=== PATIENT | male | born 1990 | race African-American/Black ===

== ENCOUNTER 2024-09-05 05:56 | Emergency (ER) | payer OTHER, SELFPAY ==
[2024-09-05] MEDS ORDERED: FAMOTIDINE 20 MG/2 ML VIAL IV ONE (06:42)
[2024-09-05] MEDS ORDERED: ONDANSETRON 4 MG/2 ML VIAL ONE (06:42)
[2024-09-05] MEDS ORDERED: HALOPERIDOL LACT 5 MG/ML INJ ONE (06:42)
[2024-09-05] MEDS ORDERED: NA CHLORIDE 0.9% 1,000 ML ONE (06:42)
[2024-09-05 06:54] LABS: Absolute Lymphocytes (CBC) 0.3 K/uL (0.7-4.9); Absolute Monocytes 0.5 K/uL (0.1-1.3); Absolute Neutrophil 8.4 K/uL (1.8-8.0); Basophils % 0.2 % (0-1.3); Hematocrit 44.6 % (39.6-49.0); Hemoglobin 15.5 g/dL (13.6-17.9); Lymphocytes % 3.6 % (15.3-44.8); MCHC 34.7 g/dL (32.0-36.0); MCV 92.3 fL (80-100); Monocytes % 5.4 % (3.3-12.3); Neutrophils % 90.8 % (41.7-73.7); Platelets 268 thou/uL (152-406); RBC Red Blood Cell Count 4.84 M/uL (4.33-5.43); Red Cell Distribution Width 12.6 % (12.1-15.2)
[2024-09-05 07:13] LABS: Albumin 4.4 g/dL (3.4-5.0); Albumin/Globulin Ratio 1.3 (1.1-1.8); Anion Gap 10.6 mEq/L (5.0-15.0); Bilirubin Total 1.5 mg/dL (0.2-1.0); Globulin 3.5 g/dL (2.3-3.5); Potassium 3.6 mEq/L (3.5-5.1); Protein, Total 7.9 g/dL (6.4-8.2)
--- NOTE | 2024-09-05 07:42 | ER ---
Nurse's Notes [facility] Name: Jonatan Valdez Age: 34 yrs Sex: Male : 1990 Arrival Date: 09/05/2024 Time: 05:56 Bed 20 Private MD: Diagnosis: Vomiting, unspecified;Diarrhea, unspecified Presentation: 09/05 06:17 Chief complaint: EMS states: c/o N/V for several days. Coronavirus screen: Client vc1 denies travel out of the [place] in the last 14 days. vomiting. Client presents with at least one sign or symptom that may indicate coronavirus-19. Ebola Screen: Patient negative for fever greater than or equal to 101.5 degrees Fahrenheit, and additional compatible Ebola Virus Disease symptoms Patient denies exposure to infectious person. Patient denies travel to an Ebola-affected area in the 21 days before illness onset. No symptoms or risks identified at this time. Risk Assessment: Do you want to hurt yourself or someone else? Patient reports no desire to harm self or others. Onset of symptoms is unknown. Care prior to arrival: None. Activity prior to arrival: None. 06:17 Method Of Arrival: EMS: [facility] vc1 06:17 Acuity: CHRISSY 3 vc1 06:45 Initial Sepsis Screen: Does the patient meet any 2 criteria? No. Patient's initial vc1 sepsis screen is negative. Does the patient have a suspected source of infection? No. Patient's initial sepsis screen is negative. Triage Assessment: 06:43 General: Appears in no apparent distress. uncomfortable, Behavior is calm, cooperative, vc1 appropriate for age. Pain: Complains of pain in umbilical area, right upper quadrant, left upper quadrant, right lower quadrant and left lower quadrant Pain does not radiate. Pain currently is 5 out of 10 on a pain scale. Also complains of nausea. EENT: No deficits noted. No signs and/or symptoms were reported regarding the EENT system. Neuro: Level of Consciousness is awake, alert, obeys commands, Oriented to person, place, time, situation, Appropriate for age. Cardiovascular: Capillary refill < 3 seconds Patient's skin is warm and dry. Respiratory: Airway is patent Respiratory effort is even, unlabored, Respiratory pattern is regular, symmetrical. GI: Reports epigastric pain, nausea, vomiting. Historical: - Allergies: 06:42 No Known Allergies; vc1 - Home Meds: 06:42 None [Active]; vc1 - PMHx: 06:42 None; vc1 - PSHx: 06:42 None; vc1 - Immunization history:: Client reports having NOT received the Covid vaccine. - Infectious Disease History:: Denies. - Social history:: Smoking status: unknown. Screenin:44 [place] [facility] Fall Risk Assessment (Adult) History of falling in the last 3 months, vc1 including since admission No falls in past 3 months (0 pts) Confusion or Disorientation No (0 pts) Intoxicated or Sedated No (0 pts) Impaired Gait No (0 pts) Mobility Assist Device Used No (0 pt) Altered Elimination No (0 pt) Score/Fall Risk Level 0 - 2 = Low Risk Oriented to surroundings, Maintained a safe environment, Educated pt \\T\\ family on fall prevention, incl call for assistance when getting out of bed. Abuse screen: Denies threats or abuse. Nutritional screening: No deficits noted. Tuberculosis screening: No symptoms or risk factors identified. Assessment: 06:55 General: Appears uncomfortable, Behavior is calm, cooperative, quiet, Reports feeling ss ill for "since after midnight.". Denies fever. Pain: Complains of pain in abdomen Pain currently is 5 out of 10 on a pain scale. Quality of pain is described as aching. Neuro: Level of Consciousness is awake, alert, obeys commands, Oriented to person, place, time, situation, Speech is normal. Respiratory: Airway is patent Respiratory effort is even, unlabored, Respiratory pattern is regular, symmetrical. GI: Reports lower abdominal pain, upper abdominal pain, diarrhea, nausea, vomiting, since "just after midnight". : No signs and/or symptoms were reported regarding the genitourinary system. Derm: Skin is pink, warm \\T\\ dry. normal. 07:33 Reassessment: Patient appears in no apparent distress at this time. No changes from kc6 previously documented assessment. Patient and/or family updated on plan of care and expected duration. Pain level reassessed. Patient is alert, oriented x 3, equal unlabored respirations, skin warm/dry/pink. Vital Signs: 06:44 BP 149 / 98; Pulse 97; Resp 16; Temp 98.4; Pulse Ox 100% ; Weight 79.38 kg; Height 5 vc1 ft. 11 in. ; Pain 5/10; 06:56 BP 112 / 77; ss 06:44 Body Mass Index 24.41 (79.38 kg, 180.34 cm) vc1 06:44 Pain Scale: Adult vc1 ED Course: 06:00 Patient arrived in ED. gm2 06:00 Arleen Douglas MD is Attending Physician. sw6 06:18 Triage completed. vc1 06:42 Inserted saline lock: 20 gauge in right antecubital area, using aseptic technique. vc1 Blood collected. Flushed with 10 mL NS. 06:42 CBC with Diff Sent. vc1 06:42 CMP Sent. vc1 06:42 Lipase Sent. vc1 06:43 Arm band placed on right wrist. vc1 06:55 Patient has correct armband on for positive identification. Bed in low position. Call ss light in reach. Side rails up X 1. hall monitor on. Pulse ox on. NIBP on. Warm blanket given. 06:57 CBC with Diff Sent. vk 06:57 CMP Sent. vk 06:57 Lipase Sent. vk 07:07 Tanisha Black, RN is Primary Nurse. kc6 07:07 Report received from ENRIKE Villegas. kc6 07:13 Attending Physician role handed off by Arleen Douglas MD rn 07:13 Shiva Herrera MD is Attending Physician. rn 07:38 US Abdomen Limited In Process Unspecified. EDMS 08:09 No provider procedures requiring assistance completed. IV discontinued, intact, kc6 bleeding controlled, No redness/swelling at site. Pressure dressing applied. Administered Medications: 06:50 Drug: NS 0.9% IV 1000 ml IV at 1 bolus Per protocol; to be given as a bolus over 60 ss minutes Route: IV; Rate: 1 bolus; Site: right antecubital; 06:51 Drug: Ondansetron IVP 4 mg IVP once; over 2 minutes Route: IVP; Site: right antecubital;ss 07:33 Follow up: Response: No adverse reaction kc6 06:52 Drug: Famotidine IVP 20 mg IVP once; dilute with 10 mL 0.9% NaCl; give over 2 minutes ss Route: IVP; Site: right antecubital; 07:33 Follow up: Response: No adverse reaction kc6 06:54 Drug: Haloperidol IVP 2.5 mg/50 mL 2.5 mg IVP once; Place patient on a traffic monitor specialist ss Route: IVP; Site: right antecubital; 07:33 Follow up: Response: No adverse reaction kc6 Medication: 06:45 VIS not applicable for this client. vc1 Outcome: 07:41 Discharge ordered by . rn 08:10 Discharged to home ambulatory, kc6 08:10 Condition: improved 08:10 Discharge instructions given to patient, Instructed on discharge instructions, follow up and referral plans. medication usage, Demonstrated understanding of instructions, follow-up care, medications, Prescriptions given X 1, 08:10 Patient left the ED. kc6 Signatures: Dispatcher [employer] EDMS Shiva Herrera MD MD rn Blanchard, Shelby, RN RN ss Calcote, Vanessa, RN RN vc1 Tanisha Black RN RN kc6 Hailey Sanders Vivian vk Williams, Sandra, MD MD sw6
--- NOTE | 2024-09-05 07:42 | EDPHYS ---
Physician Documentation [facility] Name: Jonatan Valdez Age: 34 yrs Sex: Male : 1990 Arrival Date: 09/05/2024 Time: 05:56 Bed 20 Private MD: ED Physician Shiva Herrera HPI: 09/05 06:09 This 34 yrs old Black Male presents to ER via Unassigned with complaints of sw6 Nausea/Vomiting/Diarrhea, Dizziness. 06:09 The patient presents to the emergency department with nausea, vomiting, diarrhea. sw6 Onset: The symptoms/episode began/occurred last night. Possible causes: bad food exposure, possibly bad restaurant food. The patient presents from home with EMS for evaluation for nausea, vomiting as well as some diarrhea that started late yesterday evening. No sick contacts. He reports he did eat at 2 restaurants yesterday and the food did seem questionable to him. No recent trips or travel. No recent antibiotics. No medication taken for symptoms. He does feel lightheaded but no dizziness or syncope. No history of high blood pressure, diabetes or high cholesterol. He denies any use of illicit drugs. No medication given by EMS prior to arrival. Here for evaluation.. Historical: - Allergies: 06:42 No Known Allergies; vc1 - Home Meds: 06:42 None [Active]; vc1 - PMHx: 06:42 None; vc1 - PSHx: 06:42 None; vc1 - Immunization history:: Client reports having NOT received the Covid vaccine. - Infectious Disease History:: Denies. - Social history:: Smoking status: unknown. ROS: 06:09 Constitutional: Negative for fever, chills, and weight loss, Cardiovascular: Negative sw6 for chest pain, palpitations, and edema, Respiratory: Negative for shortness of breath, cough, wheezing, and pleuritic chest pain, 06:09 Abdomen/GI: Positive for nausea, vomiting, and diarrhea, 06:09 All other systems are negative, Exam: 06:09 Constitutional: This is a well developed, well nourished patient who is awake, alert, sw6 and in no acute distress. Chest/axilla: Normal chest wall appearance and motion. Nontender with no deformity. No lesions are appreciated. Cardiovascular: Regular rate and rhythm with a normal S1 and S2. No gallops, murmurs, or rubs. Normal PMI, no JVD. No pulse deficits. Respiratory: Lungs have equal breath sounds bilaterally, clear to auscultation and percussion. No rales, rhonchi or wheezes noted. No increased work of breathing, no retractions or nasal flaring. Abdomen/GI: Soft, non-tender, with normal bowel sounds. No distension or tympany. No guarding or rebound. No evidence of tenderness throughout. 06:09 Skin: Warm, dry with normal turgor. Normal color with no rashes, no lesions, and no evidence of cellulitis. MS/ Extremity: Pulses equal, no cyanosis. Neurovascular intact. Full, normal range of motion. Neuro: Awake and alert, GCS 15, oriented to person, place, time, and situation. Cranial nerves II-XII grossly intact. Motor strength 5/5 in all extremities. Sensory grossly intact. Cerebellar exam normal. Normal gait. Psych: Awake, alert, with orientation to person, place and time. Behavior, mood, and affect are within normal limits. 06:09 ENT: Dry mucous membranes. Vital Signs: 06:44 BP 149 / 98; Pulse 97; Resp 16; Temp 98.4; Pulse Ox 100% ; Weight 79.38 kg; Height 5 vc1 ft. 11 in. ; Pain 5/10; 06:56 BP 112 / 77; ss 06:44 Body Mass Index 24.41 (79.38 kg, 180.34 cm) vc1 06:44 Pain Scale: Adult vc1 MDM: 06:01 Medical Screening Exam initiated sw6 06:09 Differential diagnosis: Nonspecific abd pain, gastritis, viral gastroenteritis, sw6 gastroenteritis. Data reviewed: vital signs, nurses notes, EMS record. 06:56 Transition of care: After a detail discussion of the patient's case, care is sw6 transferred to Shiva Herrera MD. ED course: The patient is signed out pending results of laboratory studies as well as reevaluation. Anticipate discharge home later when he is able to tolerate by mouth.. 07:38 Counseling: I had a detailed discussion with the patient and/or guardian regarding the rn historical points, exam findings, and any diagnostic results supporting the discharge/admit diagnosis, the need for outpatient follow up, to return to the emergency department if symptoms worsen or persist or if there are any questions or concerns that arise at home. Special discussion: Based on the patient's Hx, exam, and Dx evaluation, there is no indication for emergent surgery or inpatient Tx. It is understood by the patient/guardian that if the Sx's persist or worsen they need to return immediately for re-evaluation. I discussed with the patient/guardian in detail that at this point there is no indication for admission to the hospital. It is understood, however, that if the symptoms persist or worsen the patient needs to return immediately for re-evaluation. Based on the history and exam findings, there is no indication for further emergent testing or inpatient evaluation. I discussed with the patient/guardian the need to see the primary care provider for further evaluation of the symptoms. ED course: Ultrasound negative for cholelithiasis or acute abnormality per solar fabrication technician verbal report.. ED course: No acute abnormalities and workup. Mild elevation of bilirubin but ultrasound negative for acute abnormality of liver or gallbladder. Patient feels much better. Well-hydrated. No longer nauseous. Will discharge home with as needed Zofran and return precautions.. 09/05 06:09 Order name: CBC with Diff; Complete Time: 07:04 09/05 06:09 Order name: CMP; Complete Time: 07:16 09/05 06:09 Order name: Lipase; Complete Time: 07:16 09/05 07:20 Order name: US Abdomen Limited; Complete Time: 08:09 rn 09/05 06:09 Order name: IV Saline Lock; Complete Time: 06:40 09/05 06:09 Order name: Labs collected and sent; Complete Time: 06:40 Administered Medications: 06:50 Drug: NS 0.9% IV 1000 ml IV at 1 bolus Per protocol; to be given as a bolus over 60 ss minutes Route: IV; Rate: 1 bolus; Site: right antecubital; 06:51 Drug: Ondansetron IVP 4 mg IVP once; over 2 minutes Route: IVP; Site: right antecubital;ss 07:33 Follow up: Response: No adverse reaction kc6 06:52 Drug: Famotidine IVP 20 mg IVP once; dilute with 10 mL 0.9% NaCl; give over 2 minutes ss Route: IVP; Site: right antecubital; 07:33 Follow up: Response: No adverse reaction kc6 06:54 Drug: Haloperidol IVP 2.5 mg/50 mL 2.5 mg IVP once; Place patient on a alarm security or surveillance monitor ss Route: IVP; Site: right antecubital; 07:33 Follow up: Response: No adverse reaction kc6 Disposition Summary: 09/05/24 07:41 Discharge Ordered Notes: Location: Home rn Problem: new rn Symptoms: have improved rn Condition: Stable rn Diagnosis - Vomiting, unspecified rn - Diarrhea, unspecified rn Followup: rn - With: Private Physician - When: As needed - Reason: Recheck today's complaints, Re-evaluation by your physician Discharge Instructions: - Discharge Summary Sheet rn - Diarrhea, Adult rn - Nausea and Vomiting, Adult rn Forms: - Medication Reconciliation Form rn - Antibiotic internet sales manager - Prescription Opioid Use rn - Patient Portal Instructions rn - Leadership Thank You Letter rn Prescriptions: - ondansetron 4 mg Oral Tablet,disintegrating - take 1 tablet ORAL route every 8 hours As needed; 12 tablet; Refills: 0, rn Product Selection Permitted Signatures: Dispatcher [employer] EDMS Shiva Herrera MD MD rn Blanchard, Shelby, RN RN ss She Akers RN RN vc1 Arleen Douglas MD MD sw6 Tanisha Black RN kc6 Corrections: (The following items were deleted from the chart) 06:09 06:09 CBC+H.LAB.BRZ ordered. EDMS EDMS 06:09 06:09 COMPREHENSIVE METABOLIC PANEL+C.LAB.BRZ ordered. EDMS EDMS 06:09 06:09 LIPASE+C.LAB.BRZ ordered. EDMS EDMS
--- NOTE | 2024-09-05 07:59 | RAD REPORT ---
EXAM: Right upper quadrant ultrasound. CLINICAL HISTORY: vomiting COMPARISON: None. FINDINGS: Gallbladder: Normal. Bile ducts: No intrahepatic or extrahepatic biliary dilatation. Common bile duct measures 5 mm. Limited imaging of the liver shows no concerning finding. IMPRESSION: Unremarkable exam.
[2024-09-05 08:17] VITALS: TEMP 98.4; O2SAT 100
[2024-09-05 08:18] VITALS: BP 112/77
== END 2024-09-05 08:10 | disposition home or self-care (01) ==
LOC: ER 05:56
DX: R11.2 Nausea with vomiting, unspecified (principal); R19.7 Diarrhea, unspecified
CPT/HCPCS: 36415; 76705; 80053; 83690; 85025; 96374; 96375; 99285; J1630; J2405; J7030